=== PATIENT | male | born 1955 | race Caucasian/White ===

== ENCOUNTER 2024-04-06 16:04 | Inpatient (IN) | payer OTHER, MEDICARE, SELFPAY ==
[2024-04-05 15:35] VITALS: BP 129/72
[2024-04-05 17:06] VITALS: BMI 25.2
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
[2024-04-05 18:44] LABS: % Basophils 0.2 % (0-2); % Immature Granulocytes 0.2 % (0-0.5); % Lymphocytes 22.1 % (20.5-51.1); % Monocytes 9.2 % (1.7-9.3); % Neutrophils 65.3 % (42.2-75.2); Absolute Eosinophils 0.2 10^3/uL (0-0.7); Absolute Lymphocytes 1.8 10^3/uL (1.2-3.4); Absolute Monocytes 0.7 10^3/uL (0.1-0.6); Absolute Neutrophils 5.2 10^3/uL (1.4-6.5); Hemoglobin 12.4 g/dL (13.0-18.0); Mean Corp Hgb Conc. 34.4 g/dL (33.0-37.0); Mean Corpuscular Hgb 29.4 pg (27.0-31.0); Mean Corpuscular Volume 85.3 fL (80.0-94.0); Mean Platelet Volume 8.7 fL (7.4-10.4); Nucleated Red Blood Cells % 0 % (-); Platelet Count 338 10^3/uL (130-400); Red Blood Cell Count 4.22 10^6/uL (4.70-6.10); Red Cell Dist. Width 13.7 % (11.5-14.5)
[2024-04-05 18:47] LABS: Urine Albumin Negative (Neg - Trace); Urine Bilirubin Negative (Negative); Urine Character Clear (Clear); Urine Color Yellow; Urine Glucose Negative (Negative); Urine Ketone Negative (Negative); Urine Leukocyte Trace (Negative); Urine Nitrite Negative (Negative); Urine Occult Blood Negative (Negative); Urine Specific Gravity 1.015 (<1.030); Urine Urobilinogen Negative (Neg - 1+)
[2024-04-05 19:03] LABS: Urine Bacteria Few (Negative); Urine Red Blood Cell 0-2 /HPF (0-2); Urine Squamous Cell 0-2 /LPF (Few); Urine White Cell 0-2 /HPF (0-5)
[2024-04-05 19:04] LABS: ALT (SGPT) 33 U/L (0-50); AST (SGOT) 34 U/L (17-59); Albumin 3.9 g/dl (3.5-5.0); Alkaline Phosphatase 108 U/L (38-126); Blood Urea Nitrogen 19 mg/dl (9-20); Calcium 9.4 mg/dl (8.4-10.2); Carbon Dioxide 28 mmol/L (22-30); Chloride 104 mmol/L (98-107); Estimated Creatinine Clearance > 125 ml/min; Glucose 96 mg/dl (70-99); Potassium 4.4 mmol/L (3.5-5.1); Sodium 138 mmol/L (135-145); Total Bilirubin 0.4 mg/dl (0.2-1.3); Total Protein 6.5 g/dl (6.3-8.2); eGFR > 60.00
[2024-04-05 19:36] VITALS: BP 115/92
[2024-04-05 20:00] VITALS: BP 126/74
[2024-04-05 21:00] VITALS: BP 118/74
[2024-04-05] MEDS: SEROQUEL 150 MG PO (21:53)
[2024-04-05] MEDS: RISPERDAL 0.5 MG PO (21:53)
[2024-04-05] MEDS: COLACE 100 MG PO (21:53)
[2024-04-05 22:00] VITALS: BP 111/71
[2024-04-05 23:00] VITALS: BP 102/66
[2024-04-06] VITALS (10 sets, daily range): BP systolic 95–131; BP diastolic 65–83; O2SAT 95
[2024-04-06] MEDS: COLACE 100 MG PO ×2 (08:02→20:51)
[2024-04-06] MEDS: RISPERDAL 0.5 MG PO (08:02)
[2024-04-06] MEDS: ZOLOFT 100 MG PO (08:03)
[2024-04-06] MEDS: ABILIFY 2 MG PO (08:03)
[2024-04-06] MEDS: SEROQUEL 100 MG PO (08:04)
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
--- NOTE | 2024-04-06 15:16 | HPS.HSE ---
Family Physician
-
Family Physician: Aleah Richards
Chief Complaint
-
Placement
History of Present Illness
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 Discharge from rehab and brought here due to 's inability to take care of him at home.
Apparently has had increasing agitation and aggression towards his . She feels it is not safe for him to be at home. She is requesting placement.
Patient himself has no complaints. Asking about going home.
Medical History
Past Medical History
Past Medical History: Reports Other
Additional Past Medical History:
Banks's disease
Dysphagia
SVT
GERD
Anxiety disorder
Past Surgical History: Reports Other
Additional Past Surgical History:
Partial right knee replacement
Radiofrequency ablation for SVT
Social History
Tobacco: Non-smoker
Alcohol: None
Drug: None
Personal:
Living: With Family
Family History
Family History: Not pertinent
Allergies / Home Medications
Allergies reflects when Allergies were last updated in [facility].
Home Medications with original date entered in [facility]
Allergy/Medication List:
Allergies
Allergy/AdvReac Type Severity Reaction Status Date / Time
No Known Allergies Allergy Verified 04/05/24 15:35
Home Medications
aripiprazole 2 mg tablet 2 mg PO DAILY Neurological Condition 06/16/19
sertraline 100 mg tablet 100 mg PO DAILY 06/23/19
cholecalciferol (vitamin D3) 25 mcg (1,000 unit) tablet 1,000 units PO DAILY Supplement 11/20/20
aspirin 81 mg tablet,delayed release 81 mg PO BID 04/05/24
docusate sodium 100 mg capsule 100 mg PO BID 04/05/24
polyethylene glycol 3350 17 gram oral powder packet (Miralax) 17 g PO DAILY PRN constipation 04/05/24
quetiapine 100 mg tablet 100 mg PO DAILY 04/05/24
quetiapine 300 mg tablet,extended release 24 hr 300 mg PO HS 04/05/24
quetiapine 50 mg tablet 50 mg PO BID PRN anxiety/agitation 04/05/24
risperidone 0.5 mg tablet 0.5 mg PO BID 04/05/24
Review of Systems
-
History Source: Patient and Family
A 12 point ROS was completed and negative except as noted: Yes
Physical Exam
Vital Signs
Vital Signs
Temp Pulse Resp BP Pulse Ox
98.1 F 73 21 95/69 95
04/05/24 15:35 04/06/24 07:00 04/06/24 07:00 04/06/24 09:33 04/06/24 09:32
Physical Exam
General: Well Developed, Well Nourished, No Apparent Distress and Comfortable
HEENT: NormoCephalic, Anicteric and Moist mucous membranes
Respiratory: Clear
Cardiac: S1/S2 and Regular Rhythm
GI: Soft, Non Tender and Non Distended
Genito-urinary: Deferred by me
Musculoskeletal: No Clubbing, No Cyanosis and No Edema
Skin: Warm and Dry
Neuro: Awake and Alert
Hematologic/Lymphatic: No Lymphadenopathy
Psych: Agitated and Anxious
Laboratory Results
-
04/05/24 18:27
04/05/24 18:27
Laboratory Results
Total Bilirubin 0.4 mg/dl (0.2-1.3) 04/05/24 18:27
AST 34 U/L (17-59) 04/05/24 18:27
ALT 33 U/L (0-50) 04/05/24 18:27
Alkaline Phosphatase 108 U/L (38-126) 04/05/24 18:27
Impression/Plan
-
Ambulatory dysfunction -due to underlying Banks's disease. Evaluated by physical therapy, recommendation for SNF.
Banks's disease -now with progressive agitation and behavioral dyscontrol. Suspect underlying dementia. Appreciate psychiatry assistance.
Recent right knee partial replacement
DNR
updated on the phone.
[2024-04-06] MEDS: ZOLOFT 50 MG PO (16:43)
[2024-04-06] MEDS: SEROQUEL 150 MG PO ×2 (16:43→20:50)
[2024-04-06] MEDS: LOVENOX 40 MG SC (17:48)
[2024-04-06] MEDS: ASPIR LOW (ENTERIC COATED) 81 MG PO (20:51)
[2024-04-07] MEDS: TYLENOL 650 MG PO (02:02)
[2024-04-07 07:40] VITALS: BP 138/85
[2024-04-07] MEDS: SEROQUEL 150 MG PO ×3 (08:47→20:46)
[2024-04-07] MEDS: COLACE 100 MG PO ×2 (08:49→20:50)
[2024-04-07] MEDS: ASPIR LOW (ENTERIC COATED) 81 MG PO ×2 (08:49→20:50)
[2024-04-07] MEDS: VITAMIN D3 (cholecalciferol) 25 MCG PO (08:50)
[2024-04-07] MEDS: ZOLOFT 50 MG PO (08:50)
--- NOTE | 2024-04-07 09:55 | W.PN.HOSP.TC ---
Today's Communication/Plan
-
Discharge planning
Assessment / Plan
Assessment / Plan
Gen-awake, alert, NAD
HEENT-NC, AT, anicteric, clear oral mm
Neck-supple
CV-reg, no M, +S1/S2
Lungs-clear B/L
Abd-soft, NT, ND
Ext-no edema
Musculoskeletal-no cyanosis, clubbing
Skin-warm and dry
Neuro-grossly non-focal
Psych-calm, cooperative
Ambulatory dysfunction -due to underlying Diandra's disease. Evaluated by physical therapy, recommendation for SNF.
[place]'s disease -now with progressive agitation and behavioral dyscontrol. Suspect underlying dementia. Appreciate psychiatry assistance.
Recent right knee partial replacement
DNR
Dispo - medically stable for discharge to SNF. I explained to patient that he needs to go to rehab & not safe to go home. Case management updated.
Anticipated Discharge: Within 24 hours
Subjective/Interval History
-
Date of Service: April 07, 2024
Patient seen and examined. No complaints. Asking to go home.
Objective Data
-
Vital Signs:
Vital Signs
Temp Pulse Resp BP Pulse Ox
97.9 F 71 20 138/85 97
04/07/24 07:40 04/07/24 07:40 04/07/24 07:40 04/07/24 07:40 04/07/24 07:40
I&O
04/06/24 04/07/24 04/08/24
06:59 06:59 06:59
Intake Total 360 / 360
Balance 360 / 360
Review of Systems
-
Unable to obtain full review of systems at this time due to: Dementia
History Source: Patient
All other systems: Reviewed and negative
--- NOTE | 2024-04-07 10:00 | PTCARENOTE ---
Patient AAOx3, rings call [facility] for OOB assistance
--- NOTE | 2024-04-07 13:02 | W.PN.UPDATE ---
Update Note
Progress Note Update
spoke to patient's . she told me that she has been told some patient's w rogerio's become 'manic' and have 'tantrums' when they hear things they do not want to hear. she said has worsened since the sugical procedure. he is cared for
at the [facility] at [place]. she says they told her his emotional balance could be disrupted w the surgery which indeed it has. she said [facility] patient sees dr resendez a psychiatrist at [place]. the last few times
the seroquel has been increased. says that he tends to blame her for everything that does not go his . . reports abilify 2 mg is to help with the jerking movements and they have tried to stop it with negative results. will restart. he
had been on risperdal before and the seroquel was then started. i informed that we are continuing seroquel and abilify will hold off on risperdal for now. informed patient has largely been cooperative today but she tells me he has been
calling her this am and expressing his anger that he is here and not at home. reports collinbhargav pérez did a good job in her estimation but just did not want to be there but wanted to be at [employer]. is extremely stressed at this point.
she says the patient does not recognize that he is NOT fine. also says [facility] will consider him at this point pending their evaluation.
--- NOTE | 2024-04-07 14:10 | W.PN.UPDATE ---
Update Note
Progress Note Update
patient seen chart reviewed. i did speak to dr kan and dr cedeno's office and left a message with their social insurance administrator geoffrey thomas with whom i spoke . she said their doctor will call me and i left my cell phone. the patient had been fairly calm
throughout the last 24 hours but this afternoon possibly bc of a conversation with cm re disposition he became agitated and stormed out in the tucker speaking in a very loud voice. i was able to calm him and he retired to his room and was calm at that
point. he asked to shave to which i have no objection as long as supervised. will await dr kan's call re recommendations and for the weekend would not discuss placement with the patient as it is unlikely anything will come of it on wednesday or
wednesday. this patient may be difficult to place. he does not want to be placed and there are not a lot of facilities who could necessarily handle him. the best solution would be for us to be able to find a way to stabilize his affect/mood and have
him return home to if that can be done safely. noted he seems rather hostile and paranoid towards right now although he is hard to understand bc of speech issues. he also seems to perseverate when he gets going on an issue. will follow
--- NOTE | 2024-04-07 14:25 | CM ---
Addendum entered by Madelin Estrella 04/07/24 15:03:
Submitted skilled rehab referral to [facility]; Faxed clinicals to #[phone]
Original Note:
Met with patient at bedside and spoke with via the phone
CM consult completed on 04/06 in the ED. See 04/06 CM Notes. Referrals were sent via [facility] to [facility], and [facility]
Patient has Smith's disease
Psych consult completed
Per , patient had partial knee replacement surgery @ [facility] and discharged to [facility] for Rehab followed by [facility]. He was discharged when he started to exhibit aggressive behavior; friend brought him to ED.
reported that she is the primary caregiver in the home; patient needs assistance with personal care; but is able to feed himself
Ambulates with a rollator at home; also uses a weighted RW
Went to adult daycare once a week via [facility]; [facility]
stated that aggressive behavior has worsened since surgery
PT recommended SNF
[facility] declined referrals
[facility] response pending; referral was received
Offered [facility], [address] [place] [address]; .
This facility has a Smith Chorea Unit. open to consideration; stated that her will probably refuse
Plan: discharge to SNF when placement found; will continue to follow and coordinate
[2024-04-07] MEDS: ABILIFY 2 MG PO (15:27)
[2024-04-07 15:37] VITALS: BP 129/83
--- NOTE | 2024-04-07 17:25 | PTCARENOTE ---
Patient coming out in to tucker, agitated. States he wants to sign himself out tonight. Effort to calm patient somewhat effective, patient now back in room. But continues to state he wants to sign himself out. Dr. White and Dr. Mai notified.
Will try to administer PRN med for agitation.
[2024-04-07] MEDS: LOVENOX 40 MG SC (17:32)
[2024-04-07] MEDS: ATIVAN 1 MG PO (17:33)
[2024-04-07 23:15] VITALS: BP 138/80
[2024-04-08] MEDS: ATIVAN 1 MG PO ×2 (03:00→20:15)
[2024-04-08 07:00] VITALS: BP 126/77
--- NOTE | 2024-04-08 08:00 | PTCARENOTE ---
Patient calm and without agitation this AM. Sitting in bed eating breakfast. Taking PO medications with issue, see MAR. Patient ringing call chapman for assistance appropriately.
[2024-04-08] MEDS: ABILIFY 2 MG PO (08:20)
[2024-04-08] MEDS: VITAMIN D3 (cholecalciferol) 25 MCG PO (08:20)
[2024-04-08] MEDS: COLACE 100 MG PO ×2 (08:20→20:17)
[2024-04-08] MEDS: ASPIR LOW (ENTERIC COATED) 81 MG PO ×2 (08:20→20:16)
[2024-04-08] MEDS: SEROQUEL 150 MG PO ×3 (08:21→22:23)
[2024-04-08] MEDS: ZOLOFT 50 MG PO (08:21)
[2024-04-08 08:50] VITALS: BP 113/79
--- NOTE | 2024-04-08 09:15 | PTCARENOTE ---
While in route to answer patient's call CHRIS chapman hearing crash of bedside table from patient room. RN finding patient seated on floor next to bedside table. Unwitnessed event. Patient denies hitting head. Patient denies any pain and is able to move
all extremities. Small rub abrasion noted to L knee, area cleansed with NSS and covered with bandaid. Patient assisted from floor to standing by RN. Able to walk with RW and x1 assistance in to bathroom. Dr. White notified, no new orders. Patient
now with bed and chair alarms. Medsitter now in place for patient safety. Patient continues to be agreeable with ringing for assistance for OOB ambulation.
--- NOTE | 2024-04-08 10:47 | W.PN.HOSP.TC ---
Today's Communication/Plan
-
Discharge planning
Assessment / Plan
Assessment / Plan
Gen-awake, alert, NAD
HEENT-NC, AT, anicteric, clear oral mm
Neck-supple
CV-reg, no M, +S1/S2
Lungs-clear B/L
Abd-soft, NT, ND
Ext-no edema
Musculoskeletal-no cyanosis, clubbing
Skin-warm and dry
Neuro-grossly non-focal
Psych-calm, cooperative
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 Evaluated by physical therapy, recommendation for SNF.
Brooklyn's disease -now with progressive agitation and behavioral dyscontrol. Suspect underlying dementia. Appreciate psychiatry assistance. Will try to limit benzodiazepine use as it will only contribute to falls and confusion in the hospital.
Informed by nurse that he fell overnight. Did not sustain significant injury.
Recent right knee partial replacement
DNR
Dispo - medically stable for discharge to SNF. I explained to patient that he needs to go to rehab & not safe to go home. Case management updated.
Anticipated Discharge: 24 - 48 hours
Subjective/Interval History
-
Date of Service: April 08, 2024
Patient seen and examined. No complaints.
Objective Data
-
Vital Signs:
Vital Signs
Temp Pulse Resp BP Pulse Ox
98.2 F 87 17 113/79 100
04/08/24 08:50 04/08/24 08:50 04/08/24 08:50 04/08/24 08:50 04/08/24 08:50
I&O
04/07/24 04/08/24 04/09/24
06:59 06:59 06:59
Intake Total 360 / 360 1080 / 1080 630 / 630
Balance 360 / 360 1080 / 1080 630 / 630
Review of Systems
-
History Source: Patient
All other systems: Reviewed and negative
--- NOTE | 2024-04-08 11:21 | W.PN.UPDATE ---
Update Note
Progress Note Update
Patient is difficult to understand but is presently calm and not agitated. He is interested in going home but given the aggression it may be best for him to be in placement.
For now I would continue the present psychotropic medications.
[2024-04-08 15:00] VITALS: BP 129/77
--- NOTE | 2024-04-08 17:00 | PTCARENOTE ---
Patient pleasant and cooperative during shift. Using call chapman to ring for assistance. Patient ambulating halls with weighted RW and staff assist. Will monitor.
[2024-04-08] MEDS: LOVENOX 40 MG SC (17:21)
[2024-04-08 23:00] VITALS: BP 119/69
[2024-04-09 07:17] VITALS: BP 133/75
[2024-04-09] MEDS: ZOLOFT 50 MG PO (09:00)
[2024-04-09] MEDS: ABILIFY 2 MG PO (09:01)
[2024-04-09] MEDS: SEROQUEL 150 MG PO ×3 (09:01→21:48)
[2024-04-09] MEDS: COLACE 100 MG PO ×2 (09:01→21:47)
[2024-04-09] MEDS: ASPIR LOW (ENTERIC COATED) 81 MG PO ×2 (09:02→21:47)
[2024-04-09] MEDS: VITAMIN D3 (cholecalciferol) 25 MCG PO (09:02)
--- NOTE | 2024-04-09 10:38 | W.PN.UPDATE ---
Update Note
Progress Note Update
Patient is calm and cooperative. Presently not agitated , wants to go home but seems to understand his is concerned about his behaviors. Denies present mood swings, depression, anhedonia or suicidal thoughts.
Would continue current psychopharmacological regime.
--- NOTE | 2024-04-09 11:25 | W.PN.HOSP.TC ---
Today's Communication/Plan
-
Discharge planning
Assessment / Plan
Assessment / Plan
Gen-awake, alert, NAD
HEENT-NC, AT, anicteric, clear oral mm
Neck-supple
CV-reg, no M, +S1/S2
Lungs-clear B/L
Abd-soft, NT, ND
Ext-no edema
Musculoskeletal-no cyanosis, clubbing
Skin-warm and dry
Neuro-grossly non-focal
Psych-calm, cooperative
Ambulatory dysfunction -due to underlying [place] Alb[place]'s disease. Evaluated by physical therapy, recommendation for SNF.
[place] Alb[place]'s disease -now with progressive agitation and behavioral dyscontrol. Suspect underlying dementia. Appreciate psychiatry assistance. Will try to limit benzodiazepine use as it will only contribute to falls and confusion in the hospital.
Informed by nurse that he fell overnight. Did not sustain significant injury.
Recent right knee partial replacement
DNR
Dispo - medically stable for discharge to SNF. I explained to patient that he needs to go to rehab & not safe to go home. Case management updated.
Anticipated Discharge: Within 24 hours
Subjective/Interval History
-
Date of Service: April 09, 2024
Patient seen and examined. Asking to be discharged home. No other complaints.
Objective Data
-
Vital Signs:
Vital Signs
Temp Pulse Resp BP Pulse Ox
97.7 F 71 16 133/75 99
04/09/24 07:17 04/09/24 07:17 04/09/24 07:17 04/09/24 07:17 04/09/24 07:17
I&O
04/08/24 04/09/24 04/10/24
06:59 06:59 06:59
Intake Total 1080 / 1080 1530 / 1530
Balance 1080 / 1080 1530 / 1530
Review of Systems
-
History Source: Patient
All other systems: Reviewed and negative
[2024-04-09] MEDS: ATIVAN 1 MG PO (12:08)
[2024-04-09] MEDS: SEROQUEL 50 MG PO (13:02)
--- NOTE | 2024-04-09 14:30 | CM ---
Addendum entered by Henny Garcia 04/09/24 14:38:
Again attempted spouse, patient was in the [facility] in the past, will send referral.
Original Note:
Attempted to contact spouse re alternate facilities for skilled rehab.
No response when phone was answered.
patient remains on medsitter.
Plan: skilled rehab once bed available, off medsitter and insurance auth obtained.
[2024-04-09 15:00] VITALS: BP 127/72
[2024-04-09] MEDS: LOVENOX 40 MG SC (17:26)
[2024-04-09 23:01] VITALS: BP 104/75
[2024-04-10 07:00] VITALS: BP 154/86
[2024-04-10] MEDS: SEROQUEL 150 MG PO ×3 (08:56→22:13)
[2024-04-10] MEDS: VITAMIN D3 (cholecalciferol) 25 MCG PO (08:57)
[2024-04-10] MEDS: ASPIR LOW (ENTERIC COATED) 81 MG PO ×2 (08:57→22:13)
[2024-04-10] MEDS: ZOLOFT 50 MG PO (08:57)
[2024-04-10] MEDS: ABILIFY 2 MG PO (08:57)
[2024-04-10] MEDS: COLACE 100 MG PO ×2 (08:57→22:13)
--- NOTE | 2024-04-10 09:24 | CM ---
Addendum entered by Henny Garcia 04/10/24 16:06:
TC from spouse looking for an update re skilled rehab or acute rehab.
Await PMR consultation.
Addendum entered by Henny Garcia 04/10/24 12:09:
Spoke with patient bedside.
Patient very animated with speech, determined to get his point across.
Patient able to stand with assist of weighted walker and redirected to sit down, which he did.
Patient would like to get rehab so he can go home.
Explained to patient we are currently looking for a skilled bed and have asked PMR to see if he qualifies for a higher level of rehab.
Patient verbalized understanding.
Addendum entered by Henny Garcia 04/10/24 11:48:
Referral placed for PMR consult.
Addendum entered by Henny Garcia 04/10/24 11:44:
Spoke with Moncho from [facility] in [place]- p#[phone] x [phone]
they do not accept short term rehab.
If patient was to be parts counterman care, financials would need to be reviewed and possibly a [place] medicaid application.
Moncho stated if spouse interested, she could contact her and she would review what the process would be.
TC to Catie, patients spouse, she is not interested in LTC at this time.
Original Note:
TC to [facility] p# [phone], left VM.
TC from spouse requesting referrals to additional facilities.
Plan: skilled rehab once bed available, off medsitter and auth obtained.
--- NOTE | 2024-04-10 10:00 | W.PN.HOSP.TC ---
Today's Communication/Plan
-
dc to SNF when bed available
continue to follow psych recs
Assessment / Plan
Assessment / Plan
Assessment:
Ambulatory dysfunction - due to underlying Marion's disease. Evaluated by physical therapy, recommendation for SNF.
Marion's disease - now with progressive agitation and behavioral dyscontrol. Suspect underlying dementia. Appreciate psychiatry assistance. Will try to limit benzodiazepine use as it will only contribute to falls and confusion in the
hospital.
- continue Seroquel TID, Sertraline daily and Abilify daily
Recent right knee partial replacement
DVT ppx: Lovenox
Code: DNR
Anticipated Discharge: Within 24 hours
Subjective/Interval History
-
Date of Service: April 10, 2024
patient demanding to sign out
Objective Data
-
Vital Signs:
Vital Signs
Temp Pulse Resp BP Pulse Ox
97.7 F 72 18 154/86 100
04/10/24 07:00 04/10/24 07:00 04/10/24 07:00 04/10/24 07:00 04/10/24 07:00
I&O
04/09/24 04/10/24 04/11/24
06:59 06:59 06:59
Intake Total 1530 / 1530 780 / 780
Output Total 2 / 2
Balance 1530 / 1530 778 / 778
Physical Exam
-
General: No Apparent Distress
HEENT: Normocephalic and Atraumatic
Respiratory: Negative Wheezes or Rales
Cardiac: Regular Rhythm and S1/S2
GI: Soft
Genito-urinary: No Costovertebral Tender
Neuro: AO x 3
Psych: Other (verbally aggressive)
Data Reviewed
-
Total Time Spent with Patient (in minutes): 41
Labs: Labs Reviewed by me
[2024-04-10 15:00] VITALS: BP 126/66
[2024-04-10 15:04] VITALS: BP 119/72; PULSE 97; O2SAT 99
--- NOTE | 2024-04-10 15:44 | CON.MD ---
Consultation - Medical
-
Referring Provider: Dr. Perfecto Rao
Chief Complaint: Debility
History of Present Illness: 68 y/o M with PMH (as below) presents to [facility] on 04/05/2024 with increased agitation, seen by psychiatry with medication adjustment. Patient notesd he wants to get home, needs help with therapist at this
time. Did not at baseline except helped with shaving. Had right knee replacement recently.
Past Medical History: SVT, Otsego's disease, dysphagia, GERD, anxiety disorder
Procedure History: Radiofrequency ablation 2009, right partial knee replacement, radiofrequency ablation for SVT
Family History: Father with Otsego's disease
Social History:
Functional Level Premorbidly: Independent with all activities except for shaving. Use of rolling walker with 5 pound weights on either side.
Functional Level Currently:�� Ambulating 50 feet x 2 with rolling walker with min assist. Min assist transfers. Supervision for toilet transfers, min assist for bed mobility.
Tobacco: Denies
Alcohol: Denies
Drug use: Denies
Lives with: Spouse
24-hour assistance available: Yes
Number of floors: 2
# steps to enter: 2
# steps to second floor: Full flight
Driving: No
Occupation: Not working
Allergies:
Allergy/AdvReac Type Severity Reaction Status Date / Time
No Known Allergies Allergy Verified 04/05/24 15:35
Review of Systems:
Constitutional: (x) Normal _
Eye: (x) Normal _
Ear/Nose/Throat: (x) Normal _
Respiratory: (x) Normal _
Cardiovascular: (x) Normal _
Gastrointestinal: (x) Normal _
Genitourinary: (x) Normal _
Musculoskeletal: (x) abNormal _right knee replacement
Integumentary: (x) Normal _
Neurologic: (x) Normal _
Psychiatric: (x) abNormal _frustrated with his at times. Frustrated that his medications were not correct at [facility].
Endocrine: (x) Normal _
Hematologic/Lymphatic: (x) Normal _
Allergic/Immunologic: (x) Normal _
Medications:
Active Current Visit Medication List
Category Date Time Status
Acetaminophen [Tylenol] Med 04/06/24 16:58 Active
650 mg PO Q6HPRN PRN
Aripiprazole [Abilify] Med 04/07/24 14:00 Active
2 mg PO DAILY
Aspirin Low Dose EC [Aspir Low (Enteric Coated)] Med 04/06/24 20:00 Active
81 mg PO BID
Cholecalciferol (Vitamin D3) [VITAMIN D3 ( Med 04/07/24 08:00 Active
cholecalciferol)]
25 mcg PO DAILY
Docusate Sodium [Colace] Med 04/05/24 22:00 Active
100 mg PO BID
Enoxaparin Sodium [Lovenox] Med 04/06/24 18:00 Active
40 mg SC QPM
Flush (0.9% Sodium Chloride) [Flush (Nss)] Med 04/06/24 17:00 Active
See Dose Instructions IV PER PROTOCOL
Lorazepam [Ativan] Med 04/06/24 14:59 Active
1 mg PO Q8HPRN PRN
Polyethylene Glycol Powder [Miralax] Med 04/06/24 16:58 Active
17 grams PO DAILYPRN PRN
Quetiapine Fumarate [Seroquel] Med 04/06/24 16:00 Active
150 mg PO TID
Quetiapine Fumarate [Seroquel] Med 04/06/24 11:21 Active
50 mg PO BID PRN
Sertraline HCl [Zoloft] Med 04/06/24 16:00 Active
50 mg PO DAILY
Vitals:
Temp Pulse Resp BP Pulse Ox
98.5 F 86 18 126/66 95
04/10/24 15:00 04/10/24 15:00 04/10/24 15:00 04/10/24 15:00 04/10/24 15:00
Height 6 ft 6 in
Actual Weight 98.8 kg
Body Mass Index (BMI) 25.2
Physical Exam:
General Appearance/Observation: Well-developed, well-nourished male in no apparent distress. Has a tele sitter.
Pain/Comfort Assessment: Denies
Mood/Affect: increased motor activity, frustrated at times.
Eyes: Conjunctiva/Lids: normal ��� Pupils: pupils equal round and reactive to light and Accommodation
Ears/Nose/Throat: oral mucosa moist,� throat clear.������������ Lips/Teeth/Gums: normal
Cardiovascular: Heart: regular, no murmur
Pulses: dorsalis pedis 2+ bilaterally
Respiratory: Respiratory Effort/Chest Expansion: normal ������ Auscultation: Clear to auscultation bilaterally
Gastrointestinal: abdomen not tender, no distension, normal abdominal bowel sounds
Genitourinary: No Yanez
Extremities: Edema: mild right knee edema, incision healing well Cyanosis: None Trophic changes: None
Neurology Exam:
Orientation: Alert
Comprehension: Intact
Cranial Nerves:
�� CNII: Pupillary light reflex: Intact���
�� CN VII: Facial movement: Symmetric
�� CN VIII: Hearing: Normal
�� CN IX/X: Speech & swallow: dysarthric, Position of Uvula: Midline
�� CN XII: Tongue protrusion: Midline
Sensory:
�� Light touch: Intact in bilateral upper and lower extremities
Musculoskeletal:Motor: (Manual muscle scale 0-5)
Muscle SA EF WE EE FF FA HF KE DF EHL PF
Right� 5 5 4 5 5 5 5
Left 5 5 4 5 5 5 5
Tone: Normal in all extremities
Range of Motion: Passively within functional limits in all extremities
Lab Results
Laboratory Data
04/05/24 18:27
04/05/24 18:27
Total Bilirubin 0.4 mg/dl (0.2-1.3) 04/05/24 18:27
AST 34 U/L (17-59) 04/05/24 18:
ALT 33 U/L (0-50) 04/05/24 18:27
Alkaline Phosphatase 108 U/L (38-126) 04/05/24 18:27
Total Protein 6.5 g/dl (6.3-8.2) 04/05/24 18:
Albumin 3.9 g/dl (3.5-5.0) 04/05/24 18:
Diagnostic Results: as per HPI
Assessment
68 y/o M with PMH (SVT, Otsego's disease, dysphagia, GERD, anxiety disorder) with 04/05/2024 with increased agitation with recent right knee replacement at [facility].
Plan
PM&R PT/OT to increase independence with ADLs, improve balance, coordination, endurance, strength, mobility, community reintegration, decreased burden of care on others and family education.
Agitation: medication per psychiatry. Has tele sitter.
Status post right partial knee replacement: incision healing, pain control, Maintain full range of motion.
Anemia: Likely postoperative.� Continue to monitor.
Pain: acetaminophen as needed.
Bowel: Colace and Senna, PRN bisacodyl.
Bladder: Time void, PVRs, PRN straight cath.
DVT Prophylaxis: Lovenox.
Pulmonary: Incentive spirometry
Safety: Continue to reinforce assistance with all transfers.
Code Status:� DNR per chart
Dispo (date/plan/equipment needs): Home with family care.
Discharge Destination: SNF
Functional and Medical Goals: Return to baseline for ADL's, transfers and ambulation. Did not require physical assistance for transfers or ambulating. helped with shaving.
Thank you for allowing me to care for your patient. Please contact me with any questions or concerns.
--- NOTE | 2024-04-10 17:00 | W.PN.UPDATE ---
Update Note
Progress Note Update
Pt seen, sitting on side of bed, speech difficult to understand due to neurological condition. Pt mildly irritable, talking about how the psychiatrist, Dr Bowen at [facility], keeps increasing medication. Pt noted to be calm over the weekend. Nursing
staff notes pt has been doing okay in behavior. Pt continues to state he wants to go home. Spoke with pt's on phone; she expressed hope pt will get more PT, hopefully without having to go to another different facility. Rehab facility after
recent knee replacement surgery reportedly did not go well.
Pt appears to be tolerating current psychiatric medications, changed somewhat here. Pt denies feeling dizzy, does not appear sedated this afternoon.
Imp: [place]'s disease, with suspected dementia, behavior disturbance
Rec: continue current psychotropic medications. Would review with psychiatrist with [facility]
will follow
[2024-04-10] MEDS: LOVENOX 40 MG SC (17:30)
[2024-04-10 23:16] VITALS: BP 107/64
[2024-04-11 07:36] VITALS: BP 120/69
--- NOTE | 2024-04-11 09:07 | W.PN.HOSP.TC ---
Today's Communication/Plan
-
await PMR eval and dispo planning
Assessment / Plan
Assessment / Plan
Assessment:
Ambulatory dysfunction - due to underlying [place]'s disease. Evaluated by physical therapy, recommendation for SNF. PMR also consulted to eval for [facility]. CM following.
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 Suspect underlying dementia. Appreciate psychiatry assistance. Will try to limit benzodiazepine use as it will only contribute to falls and confusion in the
hospital.
- continue Seroquel TID, Sertraline daily and Abilify daily
- follows with [facility] psychiatry
Recent right knee partial replacement
DVT ppx: Lovenox
Code: DNR
Anticipated Discharge: 24 - 48 hours
Subjective/Interval History
-
Date of Service: April 11, 2024
No overnight events
remains on med-sitter
seems more agreeable to rehab although speech remains animated
Objective Data
-
Vital Signs:
Vital Signs
Temp Pulse Resp BP Pulse Ox
97.3 F 78 20 120/69 97
04/11/24 07:36 04/11/24 07:36 04/11/24 07:36 04/11/24 07:36 04/11/24 07:36
I&O
04/10/24 04/11/24 04/12/24
06:59 06:59 06:59
Intake Total 780 / 780 960 / 960
Output Total 2 / 2 635 / 635
Balance 778 / 778 325 / 325
Physical Exam
-
General: No Apparent Distress
HEENT: Normocephalic and Atraumatic
Respiratory: Negative Wheezes
Cardiac: Regular Rhythm and S1/S2
GI: Soft
Genito-urinary: No Costovertebral Tender
Musculoskeletal: No Edema
Neuro: AO x 3
Hematologic / Lymphatic: No Lymphadenopathy
Psych: Calm
Data Reviewed
-
Total Time Spent with Patient (in minutes): 41
Labs: Labs Reviewed by me
--- NOTE | 2024-04-11 09:07 | CM ---
Addendum entered by Henny Garcia 04/11/24 15:29:
Patient accepted by [facility] and they could offer a private room outside of the nurses station.
Discussed with spouse and she would now prefer home with home PT.
Patient refusing a hospital bed and insists he can get up the stairs.
PT saw patient and worked on stairs with him.
[facility] following.
Per spouse she will be able to transport home.
Spouse is working on increasing the amount of days patient goes to adult daycare.
Plan: home with [facility]
Original Note:
Additional referrals for skilled rehab sent.
PMR recommending skilled rehab.
Discussed with spouse she is concerned with his ability to do stairs.
Family upset that Acute rehab was not approved.
Discussed options with spouse.
Will reach out to some skilled facilities to see if they can accommodate patient.
Spouse also aware plan my be home with [facility], private caregivers.
Plan: possible skilled vs home
[2024-04-11] MEDS: SEROQUEL 150 MG PO ×3 (09:50→20:52)
[2024-04-11] MEDS: ABILIFY 2 MG PO (09:50)
[2024-04-11] MEDS: ASPIR LOW (ENTERIC COATED) 81 MG PO ×2 (09:51→20:50)
[2024-04-11] MEDS: ZOLOFT 50 MG PO (09:51)
[2024-04-11] MEDS: COLACE 100 MG PO ×2 (09:51→20:51)
[2024-04-11] MEDS: VITAMIN D3 (cholecalciferol) 25 MCG PO (09:51)
--- NOTE | 2024-04-11 10:52 | W.PN.UPDATE ---
Update Note
Progress Note Update
Patient seen at bedside, chart reviewed, discussed with staff. Mr. Galindo was mildly irritated that his medications were given 'late' and the RN did not have applesauce available. No other acute issues or concerns. Await placement to SNF or acute
rehab.
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 Meds adjusted during hospitalization with no reports of side effects. Zoloft has been decreased
to 50mg as possibly contributing to agitation and Risperdal was discontinued while Abilify was reinitiated. Would continue with current regimen which includes Zoloft 50mg daily, Seroquel 150mg TID, Abilfy 2mg daily as well as a PRN Seroquel of 50mg
BID (only administered once) and Ativan 1mg TID PRN (none administered in nearly 48 hours). Follow up as outpatient with established team.
[2024-04-11 15:18] VITALS: BP 117/68
--- NOTE | 2024-04-11 15:32 | VNURNOTE ---
Home Health Liaison spoke with patient's Catie at 1445 to discuss [facility] nurse/therapy, visits, schedule and homebound status. Catie is agreeable and would like only PT. She is declining SN and does not feel it is needed. She understands
that visits at home will be 2x per week to assess and teach strengthening, balance and safety. OT discussed and is agreeable for evaluation. Private Caregiver discussed but is not agreeable to have anyone in home while she is not there.
Patient's works 3 days in office and 2 days at home.
Patient will be returning to Adult Day Care next week for couple days a week, Liaison confirmed with paper machine supervisor that this was acceptable.
Patient's is aware that [facility] will contact her for start of care in 1-2 days after discharge from .
[facility] referral completed in [facility] Port with request for next day start of care pending availability.
[2024-04-11 16:00] VITALS: BP 117/68; PULSE 93; O2SAT 97
[2024-04-11] MEDS: LOVENOX 40 MG SC (17:42)
[2024-04-11 23:27] VITALS: BP 109/63
[2024-04-12 07:30] VITALS: BP 111/60
[2024-04-12] MEDS: COLACE PO (08:01)
[2024-04-12] MEDS: ABILIFY 2 MG PO (08:01)
[2024-04-12] MEDS: SEROQUEL 150 MG PO ×4 (08:01→21:59)
[2024-04-12] MEDS: ZOLOFT 50 MG PO (08:01)
[2024-04-12] MEDS: VITAMIN D3 (cholecalciferol) 25 MCG PO (08:02)
[2024-04-12] MEDS: ASPIR LOW (ENTERIC COATED) 81 MG PO ×2 (08:02→19:59)
--- NOTE | 2024-04-12 10:18 | W.PN.HOSP.TC ---
Today's Communication/Plan
-
dc planning with home discharge tomorrow
Assessment / Plan
Assessment / Plan
Assessment:
Ambulatory dysfunction - due to underlying [place]'s disease. Evaluated by physical therapy, recommendation for SNF but family consider home/VN option. [facility] denied him. CM following.
[place]'s disease - now with progressive agitation and behavioral dyscontrol. Suspect underlying dementia. Appreciate psychiatry assistance. Will try to limit benzodiazepine use as it will only contribute to falls and confusion in the
hospital.
- continue Seroquel TID, Sertraline daily and Abilify daily
- follows with [facility]
Recent right knee partial replacement
DVT ppx: Lovenox
Code: DNR
Anticipated Discharge: Within 24 hours
Subjective/Interval History
-
Date of Service: April 12, 2024
denies any new complaints at present
Objective Data
-
Vital Signs:
Vital Signs
Temp Pulse Resp BP Pulse Ox
100.1 F 82 17 111/60 96
04/12/24 07:30 04/12/24 07:30 04/12/24 07:30 04/12/24 07:30 04/12/24 07:30
I&O
04/11/24 04/12/24 04/13/24
06:59 06:59 06:59
Intake Total 960 / 960 1070 / 1070
Output Total 635 / 635 200 / 200
Balance 325 / 325 870 / 870
Physical Exam
-
General: No Apparent Distress
HEENT: Normocephalic
Respiratory: Negative Wheezes
Cardiac: Regular Rhythm and S1/S2
GI: Soft
Genito-urinary: No Costovertebral Tender
Neuro: AO x 3
Psych: Calm
Data Reviewed
-
Total Time Spent with Patient (in minutes): 41
Labs: Labs Reviewed by me
--- NOTE | 2024-04-12 11:50 | W.PN.UPDATE ---
Update Note
Progress Note Update
patient seen chart reviewed. discussed with nursing and with case mgt. the patient is scheduled to go home tomorrow. he wants to go home today. impressed upon him that it is one more day as cannot get him today and he needs to remain calm so
that he can indeed leave. he did remain calm while i spoke with him although he was agitated when i came on the unit and it took some time for staff to calm him down. another issue for him is the iv which we will remove as he has no iv prns
ordered. will increase seroquel to 150 mg qid. cm is talking to staff about what types of home care are most appropriate. there is also the option of a day care for him which he currently attends once weekly perhaps more days would be better.
--- NOTE | 2024-04-12 11:57 | CM ---
Spoke with patient via phone
She reported that she will be here tomorrow afternoon to provide transport home
Recommended to that she be present when discharge instructions are reviewed prior to discharge
requested that staff bathe patient before he goes home
Plan: discharge to Home tomorrow with Home Health for PT
--- NOTE | 2024-04-12 14:30 | PTCARENOTE ---
1200 Pt found out will be discharge tomorrow and not today. When I entered room pt became angry and started to shout ' I am going home today' 'take out my IV' Provided emotional support and when I attempted to explain to pt, pt continue to shout and
became more angry. DR. Mai (psychiatry) here to see pt at bedside and noted new orders. Noted pt calm and eating lunch.
1300 Noted pt calm and watching T.V. Seroquel 150 mg po given as ordered, continue to monitor pt closely.
[2024-04-12 15:40] VITALS: BP 99/64
[2024-04-12] MEDS: LOVENOX 40 MG SC (18:30)
[2024-04-12] MEDS: COLACE 100 MG PO (19:59)
[2024-04-12 23:04] VITALS: BP 128/72
[2024-04-13] MEDS: ASPIR LOW (ENTERIC COATED) 81 MG PO (07:40)
[2024-04-13] MEDS: VITAMIN D3 (cholecalciferol) 25 MCG PO (07:41)
[2024-04-13] MEDS: ABILIFY 2 MG PO (07:41)
[2024-04-13] MEDS: SEROQUEL 150 MG PO ×2 (07:41→12:12)
[2024-04-13] MEDS: COLACE 100 MG PO (07:41)
[2024-04-13] MEDS: ZOLOFT 50 MG PO (07:42)
[2024-04-13 07:45] VITALS: BP 114/60
--- NOTE | 2024-04-13 10:39 | CHAP ---
Father Chris Campos of [facility] in [place] gave [facility].
--- NOTE | 2024-04-13 11:06 | W.PN.HOSP.TC ---
Today's Communication/Plan
-
dc to home
Assessment / Plan
Assessment / Plan
Assessment:
Ambulatory dysfunction - due to underlying [place]'s disease. Evaluated by physical therapy, recommendation for SNF but family consider home/VN option. [facility] denied him. CM following.
[place]'s disease - now with progressive agitation and behavioral dyscontrol. Suspect underlying dementia. Appreciate psychiatry assistance. Will try to limit benzodiazepine use as it will only contribute to falls and confusion in the
hospital.
- continue Seroquel TID, Sertraline daily and Abilify daily
- follow up with [facility]
Recent right knee partial replacement
DVT ppx: Lovenox
Code: DNR
More than 30 minutes spent in discharge including
Final examination of the patient
Summarizing hospital stay
Instructions for continuing care to all relevant caregivers
Preparation of discharge records, prescriptions, and referral forms
Total time spent (in minutes): 41
Anticipated Discharge: Today
Subjective/Interval History
-
Date of Service: April 13, 2024
no overnight events
Objective Data
-
Vital Signs:
Vital Signs
Temp Pulse Resp BP Pulse Ox
98.0 F 80 18 114/60 96
04/13/24 07:45 04/13/24 07:45 04/13/24 07:45 04/13/24 07:45 04/13/24 07:45
I&O
04/12/24 04/13/24 04/14/24
06:59 06:59 06:59
Intake Total 1070 / 1070 960 / 960
Output Total 200 / 200 400 / 400
Balance 870 / 870 560 / 560
Physical Exam
-
General: No Apparent Distress
HEENT: Normocephalic and Atraumatic
Respiratory: Negative Wheezes
Cardiac: Regular Rhythm and S1/S2
GI: Soft
Genito-urinary: No Costovertebral Tender
Musculoskeletal: No Edema
Neuro: AO x 3
Hematologic / Lymphatic: No Lymphadenopathy
Psych: Calm
Data Reviewed
-
Total Time Spent with Patient (in minutes): 41
Labs: Labs Reviewed by me
--- NOTE | 2024-04-13 11:15 | W.DS.TRANS ---
DC Summary - Grounds Person
-
Discharge Instructions:
Discharge Diagnosis/Procedures behavioral agitation, hx of HD
Diet Regular
Activity As tolerated
Bathing Restrictions None
Instructions:
Stand-Alone Forms:
Changes to Home Medications: Yes
Discharge Medications:
DC Medications w/original date entered in [facility]
cholecalciferol (vitamin D3) 25 mcg (1,000 unit) tablet 1,000 units PO DAILY Supplement 11/20/20
aspirin 81 mg tablet,delayed release 81 mg PO BID Blood Clot Prevention/Tx 04/05/24
docusate sodium 100 mg capsule 100 mg PO BID Constipation 04/05/24
polyethylene glycol 3350 17 gram oral powder packet (Miralax) 17 g PO DAILY PRN constipation 04/05/24
aripiprazole 2 mg tablet 2 mg PO DAILY Neurological Condition #30 tabs 04/13/24
quetiapine 50 mg tablet 50 mg PO BID PRN anxiety/agitation #60 tabs 04/13/24
quetiapine 50 mg tablet (Seroquel) 150 mg (3 x 50 mg) PO QID #360 tabs 04/13/24
sertraline 50 mg tablet 50 mg PO DAILY #30 tabs 04/13/24
Home Medication Changes
Zoloft to 50mg daily
Seroquel to 150mg QID + prn
Risperdal stopped
Pending Results: No
Total time spent discharging patient (in min): 42
[2024-04-13] MEDS: PREVNAR 20 0.5 ML IM (12:11)
--- NOTE | 2024-04-13 12:45 | W.PN.UPDATE ---
Update Note
Progress Note Update
patient seen chart reviewed. spoke with nursing and dr hawkins. nursing asked me to meet with patient and his as expressed some concern about dc meds the seroquel having been increased. patient had been on 400 mg. explained that the
increase does seem to have helped but since they have an appointment with dr cedeno the psych at [facility] on wednesday she can either stick with 400 or continue w 600 and discuss on wednesday. informed patient and that i did call [facility] but did not get a
call back although i had left them my cell. the patient was pleasant today. he was interacting with his appropriately at this point.
--- NOTE | 2024-04-13 12:46 | CM ---
Patient seen bedside.
Patient for d/c home today.
will transport.
IMM completed.
Plan: home with VN
== END 2024-04-13 13:47 | disposition home health service (06) | DRG 57 ==
LOC: 4 WEST ACU 16:04
PROVIDERS: Physician Assistant; ADMITTING PHYSICIAN Hospitalist; ATTENDING PHYSICIAN Internal Medicine; CONSULT PHYSICIAN Physical Medicine & Rehabilitation; CONSULT PHYSICIAN Psychiatry & Neurology Psychiatry; EMERGENCY PHYSICIAN Emergency Medicine; FAMILY PHYSICIAN Family Medicine
PROC: 3E0234Z Introduction of Serum, Toxoid and Vaccine into Muscle, Percutaneous Approach (ICD-10-PCS; 2024-04-13)
DX: G10 Huntington's disease (principal); F02.811 Dementia in other diseases classified elsewhere, unspecified severity, with agitation; I47.10 Supraventricular tachycardia, unspecified; F41.9 Anxiety disorder, unspecified; R45.1 Restlessness and agitation; R13.10 Dysphagia, unspecified; K21.9 Gastro-esophageal reflux disease without esophagitis; D64.9 Anemia, unspecified; R26.2 Difficulty in walking, not elsewhere classified; Z66 Do not resuscitate; Z96.651 Presence of right artificial knee joint; Z79.82 Long term (current) use of aspirin; Z23 Encounter for immunization
CPT/HCPCS: 80053; 81003; 81015; 85025; 90677; 97116; 97166; 97530; 97535; G0009

== ENCOUNTER 2024-06-29 19:14 | Emergency (ER) | payer OTHER, SELFPAY ==
[2024-06-29 19:16] VITALS: BP 131/79
[2024-06-29 19:34] LABS: % Basophils 0.3 % (0-2); % Eosinophils 9.7 % (0-6); % Immature Granulocytes 0.1 % (0-0.5); % Lymphocytes 20.6 % (20.5-51.1); % Monocytes 6.4 % (1.7-9.3); % Neutrophils 62.9 % (42.2-75.2); Absolute Eosinophils 0.7 10^3/uL (0-0.7); Absolute Lymphocytes 1.4 10^3/uL (1.2-3.4); Absolute Monocytes 0.4 10^3/uL (0.1-0.6); Absolute Neutrophils 4.3 10^3/uL (1.4-6.5); Hematocrit 35.6 % (39.0-52.0); Hemoglobin 12.3 g/dL (13.0-18.0); Mean Corp Hgb Conc. 34.6 g/dL (33.0-37.0); Mean Corpuscular Hgb 28.9 pg (27.0-31.0); Mean Corpuscular Volume 83.6 fL (80.0-94.0); Mean Platelet Volume 8.8 fL (7.4-10.4); Nucleated Red Blood Cells % 0 % (-); Platelet Count 273 10^3/uL (130-400); Red Blood Cell Count 4.26 10^6/uL (4.70-6.10); Red Cell Dist. Width 13.9 % (11.5-14.5); White Blood Cell Count 6.9 10^3/uL (4.8-10.8)
[2024-06-29 19:52] LABS: ALT (SGPT) 22 U/L (0-50); AST (SGOT) 31 U/L (17-59); Albumin 3.6 g/dl (3.5-5.0); Alkaline Phosphatase 96 U/L (38-126); Blood Urea Nitrogen 17 mg/dl (9-20); Calcium 9.5 mg/dl (8.4-10.2); Carbon Dioxide 25 mmol/L (22-30); Chloride 102 mmol/L (98-107); Glucose 135 mg/dl (70-99); Potassium 4.6 mmol/L (3.5-5.1); Sodium 133 mmol/L (135-145); Total Bilirubin 0.2 mg/dl (0.2-1.3); Total Protein 5.9 g/dl (6.3-8.2); eGFR > 60.00
[2024-06-29 19:57] LABS: NT-proBNP 90.5 pg/ml; Troponin I < 0.012 ng/ml
--- NOTE | 2024-06-29 21:01 | ED.GENMED ---
History of Present Illness
General
Chief Complaint: Swelling
Source: patient, records and spouse
Exam Limitations: none
Time Seen by Provider: 06/29/24 20:51
Nursing documentation reviewed up to this point in time: agreed with
History of Present Illness
History of Present Illness:
69-year-old male with a past medical history of [place]'s disease, GERD/PUD, ambulatory dysfunction who presents to the emergency room from home with his for evaluation of leg swelling and shortness of breath. Symptoms have been ongoing for
the past week�initially noticed swelling in the ankles since has progressed up both legs. He has had increased shortness of breath particular with activity. notes that he seems increasingly weak with ambulation�typically ambulates with a
walker she says that he is taking longer to get around. does admit his activity level has decreased a bit since he had a knee replacement surgery in March; he has been getting home physical therapy and has a visiting nurse. Aside from the above
patient also had some difficulty with urinary stream although no dysuria or abdominal pain. No fevers or chills. No cough or chest pain. No other complaints noted
Past History
Past History
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
ED Past Surgical History: Cardiac, Orthopedic and Other
Social History
Tobacco: Non-smoker
Alcohol: None
Drug: None
Personal:
Living: with family
Employment: Not employed
Family History
Family History: Other (Father with Thorp's)
Review of Systems
Review of Systems
All Other Systems: ROS reviewed and negative except as documented in HPI and ROS
Constitutional: Reports fatigue; Denies fever or chills
Respiratory: Reports trouble breathing; Denies cough
Cardiac: Denies chest pain or palpitations
ABD/GI: Denies abdominal pain, nausea or vomiting
: Reports difficulty voiding; Denies dysuria, frequency or flank pain
Musculoskeletal: Reports edema; Denies neck pain or back pain
Neurological: Denies dizzy or headache
Phy Exam
Physical Exam
Physical Exam:
General: Awake, alert, oriented x3; no acute distress
Head: Normocephalic, atraumatic
Eyes: Conjunctiva normal, EOMI
Throat: Airway intact, handling secretions
Neck: Trachea midline, supple without meningismus
Lungs: Clear to auscultation bilaterally, no wheezing, rales, rhonchi
Heart: Regular rate and rhythm, no murmurs, gallops, or rubs
Abd: Soft, non distended, nontender, no palpable masses/bladder
Skin: no rash, no erythema or skin changes in the extremities
Extremities: Bilateral edema lower extremities from the knee down to the feet, +2; he has good strong pulses in all extremities
Scores
Heart Failure Risk
Heart Failure Risk Score: Not Applicable
Heart Score for Chest Pain Patients
STEMI patient?: Not applicable
Withdrawal Assessment of Alcohol
Withdrawal Assessment Completed?: Not applicable
Course
Orders/Labs/Results
Orders:
Orders
06/29/24 19:20
Electrocardiogram (*1) Urgent
Reason for Study: Other
Other Reason for Exam: Respiratory Distress
Cardiac Monitoring- Treatment ONCE
EKG- Treatment ONCE
IV Insert/Care/Rem.- Treatment PRN
CR Chest - 2 Views Urgent
Comment:
Reason For Exam: respiratory distress
O2 Therapy [RESP] Urgent
Titrate/Wean O2 to maintain O2 sat greater than (%): 93
Special Instructions: TO MAINTAIN CONTINUOUS O2 SATS >/= 93%
Pulse Ox/cont/shift [RESP] Urgent
Quantity: 1
Special Instructions: continuous pulse ox
06/29/24 19:27
Complete Blood Count/With Diff Urgent
Comprehensive Metabolic Panel Urgent
NT-proBNP Urgent
Troponin I Urgent
06/29/24 21:00
CT Chest Pe Study Urgent
Comment:
Reason For Exam: leg swelling, SOB, recent ortho surg
US Legs, Bilateral [US Periph Venous LOWER Ext [place]] Urgent
Comment:
Reason For Exam: leg swelling, recent knee replacement
Abnormal Lab Results
06/29/24
19:27
RBC 4.26 L 10^6/uL
(4.70-6.10)
Hgb 12.3 L g/dL
(13.0-18.0)
Hct 35.6 L %
(39.0-52.0)
Eosinophils % 9.7 H %
(0-6)
Sodium 133 L mmol/L
(135-145)
Glucose 135 H mg/dl
(70-99)
Total Protein 5.9 L g/dl
(6.3-8.2)
06/29/24 19:27
06/29/24 19:27
Vital Signs
Initial and Last Documented VS:
Initial Vital Signs
Temp Pulse Resp BP Pulse Ox
36.8 C 99 17 131/79 95
06/29/24 19:16 06/29/24 19:16 06/29/24 19:16 06/29/24 19:16 06/29/24 19:16
Last Documented Vital Signs
Temp Pulse Resp BP Pulse Ox
36.8 C 88 18 138/93 99
06/29/24 19:16 06/29/24 22:04 06/29/24 21:30 06/29/24 21:10 06/29/24 21:30
MDM/Problems Addressed
Differential Diagnosis Includes:
CHF, DVT/PE, physical deconditioning with dependent edema
MDM/Problems Addressed:
69-year-old male presents to the emergency room for evaluation of increased weakness, shortness of breath and leg swelling over the past week. Vital signs are normal here. Exam as above. Plan to place an IV check labs including a CBC and a CMP.
Will check troponin and BNP. Will check a chest x-ray and EKG. regarding urinary stream difficulties�will check a bladder scan. Will reassess at the above.
Labs reviewed: CBC shows marginal anemia stable, CMP no clinically significant abnormalities. Troponin undetectable and proBNP negative. Chest x-ray shows no pneumonia or signs of overt CHF. Given decreased activity level, recent orthopedic
surgery now with leg swelling and shortness of breath we will send for a CTA to rule out PE as well as lower extremity ultrasound.
CTA negative for central PE somewhat limited for peripheral PE but bilateral lower extremity ultrasound was also negative with normal vital signs and negative imaging as above very low clinical suspicion for PE at this point. I wonder if his
symptoms could be from deconditioning�has had decreased activity level, sitting more often could lead to dependent edema and certainly deconditioning could cause increased fatigue/shortness of breath. At this point no clear indication for admission
to the hospital. I think would be reasonable to start low-dose diuretic for the next few days to see if that helps with his leg swelling; I also counseled him and his following keeping legs elevated and increasing activity as able. He should
be followed very closely by his primary care physician. Regarding his urinary symptoms�he did have some urinary retention on postvoid residual bladder scan, suspect this is likely a chronic issue. He is able to get a stream going but is not
emptying completely suspect prostatism. I spoke to the patient and his about potentially placing a Yanez catheter but they are hesitant to do this, instead we will start patient on Flomax and have him follow-up with urology. He has already
seen Dr. Galvan in the office. Patient's is also requesting prescription for GERD�apparently at nighttime when he lays flat he will sometimes have some mucus/gurgling in the throat, has been taking famotidine without good control of GERD
symptoms. Will start on pantoprazole. Patient and feel comfortable with discharge and plan as outlined above. Spoke about return precautions all questions answered.
Chronic conditions affecting care:
[place]'s disease
*Radiology
Radiology exam reviewed: preliminary read by ED provider and radiology read reviewed
*Pulse Oximetry
Patient hypoxic: no
*EKG
Interpreted by ED Provider?: Yes
Heart Rate: 92
Rate: normal
Rhythm: sinus
[place]: normal axis
Interval: normal interval
QRS Pattern: normal QRS
Ischemia: no ischemia
*Critical Care Note
Total Time (30-74mins, 75-104mins- exclusive of procedures): Not Applicable
Data Reviewed
Review of Other/Old Records Reveals: Labs and Records
Source: patient and records
ED Attending Note
-
Portions of this chart may have been created with voice recognition software.� Occasional wrong word or��sound alike� substitutions may have occurred due to the inherent limitations of voice recognition software.
Discharge Plan
Departure
Patient Disposition: Home (Routine Discharge)
Date of Disposition: 06/29/24
Time of Disposition: 22:32
Patient with high blood pressure during this ER visit?: No
Discharge Problem:
Leg swelling, Shortness of breath, Urinary retention
Instructions: Dependent Edema (DC), Shortness of Breath, Adult ED, Urinary retention - Discharge instructions
Prescriptions:
New
furosemide [Lasix] 20 mg tablet
20 mg PO DAILY 7 Days Qty: 7 0RF
tamsulosin [Flomax] 0.4 mg capsule
0.4 mg PO DAILY Qty: 30 0RF
pantoprazole 40 mg tablet,delayed release (DR/EC)
40 mg PO DAILY Qty: 30 0RF
No Action
cholecalciferol (vitamin D3) 1,000 UNITS tablet
1,000 units PO DAILY
polyethylene glycol 3350 [Miralax] 17 gram Powder In Packet
17 g PO DAILY PRN (Reason: constipation)
aspirin 81 mg Tablet,Delayed Release (Dr/Ec)
81 mg PO BID
Patient Comments:
04/05/2024: For 42 days
docusate sodium 100 mg Capsule
100 mg PO BID
sertraline 50 mg Tablet
50 mg PO DAILY Qty: 30 0RF
quetiapine [Seroquel] 50 mg tablet
150 mg PO QID Qty: 360 0RF
aripiprazole 2 MG tablet
2 mg PO DAILY Qty: 30 0RF
quetiapine 50 mg Tablet
50 mg PO BID PRN (Reason: anxiety/agitation) Qty: 60 0RF
Referrals:
Aleah Richards DO [Family Provider] - Call in 1-3 days for appt
Everardo Galvan MD [Active] - Call in 1-3 days for appt
Activity Restrictions/Additional Instructions:
Thank you for visiting the Emergency Department at [facility].
1. Please schedule a follow up appointment as directed. Call first thing tomorrow morning to make an appointment.
2. If indicated, please take your medications as instructed and indicated on discharge paperwork.
3. If any of your symptoms do not improve, or persist, or become more severe within 6-12 hours, please return to the emergency department for further care.
4. Please return to the emergency department if you develop a headache, neck pain/stiffness, fever greater than 100.4F, chest pain, shortness of breath, persistent nausea, vomiting, slurred speech, difficulty walking, numbness/tingling, weakness,
signs of infection or any other symptoms that are worrisome to you.
Please call [phone] if you have any questions.
Interventions
Interventions:
*Risk Screen - Suicide Last Done: 06/29/24 19:16
*General Assessment Last Done: 06/29/24 19:16
*Neglect/Abuse Screening Last Done: 06/29/24 19:16
*ED COVID-19 Vaccine History Last Done: 06/29/24 19:16
ED- Cardiac Assessment Last Done: 06/29/24 21:12
ED- Pulmonary Assessment Last Done: 06/29/24 21:12
ED-Skin Assessment Last Done: 06/29/24 21:12
Discharge Date and Time
Print Language: WELSH
[2024-06-29 21:10] VITALS: BP 138/93; BMI 25.1
[2024-06-29 22:12] VITALS: BP 138/79
[2024-06-29] MEDS: FLOMAX 0.4 MG PO (22:39)
[2024-06-29] MEDS: PROTONIX IV 40 MG IV (22:40)
== END 2024-06-29 22:59 | disposition home or self-care (01) ==
LOC: EMR 19:14
PROVIDERS: Student in an Organized Health Care Education/Training Program; EMERGENCY PHYSICIAN Emergency Medicine; FAMILY PHYSICIAN Family Medicine
DX: R22.43 Localized swelling, mass and lump, lower limb, bilateral (principal); R06.02 Shortness of breath; R33.9 Retention of urine, unspecified; K21.9 Gastro-esophageal reflux disease without esophagitis; G10 Huntington's disease
CPT/HCPCS: 99285; 96374; 51798; 71046; 71275; 80053; 83880; 84484; 85025; 93005; 93970; Q9967

== ENCOUNTER → 2024-12-27 13:29 | Outpatient (REF) | payer OTHER, SELFPAY | LOC: HWRAD 13:29 | PROVIDERS: ATTENDING PHYSICIAN Family Medicine | DX: M54.9 Dorsalgia, unspecified (principal) | CPT/HCPCS: 72072; 72110 ==